=== PATIENT | male | born 1985 | race Caucasian/White ===

== ENCOUNTER 2019-02-04 18:51 | Emergency (ER) | payer OTHER ==
[~2019-02-04] VITALS: Ht 182.9 cm; Wt 100.5 kg
[2019-02-04 18:58] VITALS: BP 171/95
--- NOTE | 2019-02-04 19:05 | NUR ---
Patient ambulated to bed 4 with family. RN evaluating patient at bedside.
--- NOTE | 2019-02-04 19:15 | NUR ---
RECEIVED REPORT FROM [facility]. PT IN BED RESTING. DAMIR.
--- NOTE | 2019-02-04 19:20 | NUR ---
PATIENT PRESENTS TO ED WITH C/O PANIC ATTACK SINCE 04:00 THIS MORNING. PT REPORTS BEING WORRIED ABOUT BP, TAKING HIS BP LAST NIGHT AND GETING 170/70 CAUSING HIM TO HAVE A PANIC ATTACK. TX WITH LORAZAPAM WITH SOME RELIEF. PT HAS HX HTN, GERD, AND ANXIETY, HE STOPPED TAKING HIS LISINOPRIL A FEW MONTHS AGO AND ONLY TAKES METOPROLOL.HE ALSO REPORTS 75LBS WEIGHT LOSS OVER THE LAST YEAR. PATIENT STATES PAIN OF 0/10 AT THIS TIME; VSS; PATIENT POSITIONED FOR COMFORT; HOB ELEVATED; BEDRAILS UP X2; BED DOWN. ER MD MADE AWARE OF PT STATUS.
[2019-02-04 20:13] VITALS: BP 171/95
== END 2019-02-04 20:13 | disposition home or self-care (01) ==
LOC: MED 18:51
DX: F41.9 Anxiety disorder, unspecified (principal); I10 Essential (primary) hypertension; Z88.1 Allergy status to other antibiotic agents
CPT/HCPCS: 99284